=== PATIENT | male | born 1960 | race Caucasian/White ===

== ENCOUNTER 2019-02-12 18:40 | Inpatient (IN) | payer SELFPAY ==
[~2019-02-12 18:40] MED LIST: Glycopyrrolate 0.2 MG/ML 5 ML SYRINGE ONE; Ketorolac Tromethamine 30 MG/ML VIAL ONE; Lidocaine 1% PF 5 ML VIAL ONE; Metoclopramide HCl 10 MG/2 ML VIAL ONE; Ondansetron PF 4 MG/2 ML Vial ONE; PROPOFOL 200 MG/20 ML VIAL ONE; PROVENTIL INHALER 6.7 G (200 INHALATIONS) ONE; Rocuronium Bromide 10 MG/ML (10ML VIAL) ONE; Succinylcholine Chloride 20 MG/ML 10 ml SYRINGE FS ONE
[2019-02-12] MEDS ORDERED: Fentanyl 100 MCG/2 ML VIAL ONE ×3 (18:49→20:44)
[2019-02-12 19:01] LABS: #Basophils 0.1 thou/uL (0.0-0.2); #Eosinphils 0.1 thou/uL (0.0-0.7); #Lymphocytes 1.5 thou/uL (1.20-3.40); #Monocytes 0.4 thou/uL (0.11-0.59); #Neutrophils 6.4 thou/uL (1.40-6.50); %Basophils 0.7 % (0.0-1.0); %Lymphocytes 17.4 % (21.0-51.0); %Monocytes 4.3 % (0.0-10.0); %Neutrophils 76.6 % (42.0-75.0); Hemoglobin 14.7 g/dL (14.0-18.0); Mean Corpuscular HGB CONC 34.9 g/dL (32.0-36.0); Mean Corpuscular Hemoglobin 32.6 pg (27.0-31.0); Mean Corpuscular Volume 93.5 fL (78.0-98.0); Mean Platelet Volume 6.9 fL (7.4-10.4); Platelet Count 232 thou/uL (130-400); RBC Distribution Width 11.2 % (11.5-14.5); White Blood Cell (WBC) Count 8.3 thou/uL (4.8-10.8)
[2019-02-12] MEDS ORDERED: Adacel (T-DAP) 0.5 ML SYRINGE ONE (19:01)
--- NOTE | 2019-02-12 19:04 | RAD ---
PORTABLE CHEST: History: Pre-op. FINDINGS: Heart size and mediastinum within normal limits. The lungs are clear of infiltrates. No significant b alison findings. IMPRESSION: No active intrathoracic disease. POS: [facility]
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
[2019-02-12 19:18] LABS: ALT (SGPT) 14 U/L (8-55); AST (SGOT) 11 U/L (5-34); Alkaline Phosphatase 140 U/L (40-150); Anion Gap 13 mmol/L (10-20); BUN (Urea Nitrogen) 15 mg/dL (8.4-25.7); Bilirubin, Total 0.3 mg/dL (0.2-1.2); Calc. Creatinine Clearance 0 mL/min (70-130); Calcium 8.8 mg/dL (7.8-10.44); Carbon Dioxide 20 mmol/L (22-29); Chloride 106 mmol/L (98-107); Estimated GFR-MDRD 59; Globulin 2.4 g/dL (2.4-3.5); Glucose 377 mg/dL (70-105); Potassium 4.1 mmol/L (3.5-5.1); Protein, Total 6.4 g/dL (6.0-8.3); Sodium 135 mmol/L (136-145)
[2019-02-12] MEDS ORDERED: Famotidine/PF 20 mg/2ml Vial ONE (19:43)
[2019-02-12 20:00] LABS: Magnesium 1.7 mg/dL (1.6-2.6)
[2019-02-12] MEDS ORDERED: Ondansetron PF 4 MG/2 ML Vial IVP PRN (20:00)
[2019-02-12] MEDS ORDERED: Dextrose 5% in Water 1,000 ML IV PRN (20:00)
[2019-02-12] MEDS ORDERED: Morphine 2 MG/ML SYRINGE SLOW IVP PRN (20:00)
[2019-02-12] MEDS ORDERED: hydrALAZINE 20 MG/ML VIAL SLOW IVP PRN (20:00)
[2019-02-12] MEDS ORDERED: Morphine 4 MG/ML VIAL SLOW IVP PRN (20:00)
[2019-02-12] MEDS ORDERED: Dextrose 50% Abboject 50 ML SYRINGE SLOW IVP PRN (20:00)
[2019-02-12] MEDS ORDERED: traMADol HCl 50 MG TAB PO PRN (20:11)
[2019-02-12] MEDS ORDERED: Levofloxacin 500 mg/D5W 100 ml Premix Bag ONE (20:39)
[2019-02-12] MEDS ORDERED: Neomycin-Polymyxin 1 ML AMP ONE (20:39)
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
[2019-02-12] MEDS ORDERED: Famotidine/PF 20 mg/2ml Vial SLOW IVP SCH (21:00)
[2019-02-12] MEDS ORDERED: Bupivacaine HCl 0.5%/Epinephrine 1:200,000/PF 30 ml Vial ONE (21:20)
[2019-02-12] MEDS ORDERED: Ondansetron HCl/PF 4 MG/2 ML Vial IVP PRN (21:27)
[2019-02-12] MEDS ORDERED: Meperidine HCl/PF 25 MG/ML VIAL SLOW IVP PRN (21:27)
[2019-02-12] MEDS ORDERED: Promethazine HCl 25 MG/ML VIAL SLOW IVP PRN (21:27)
[2019-02-12] MEDS ORDERED: Promethazine HCl 25 MG/ML VIAL IM PRN (21:27)
--- NOTE | 2019-02-12 21:32 | RAD ---
XR Ankle Rt 3 View STANDARD HISTORY: Intraoperative films. Post reduction. COMPARISON: Plain films done earlier today. FINDINGS: There is been open reduction and internal fixation of the medial malleolar and distal fibul ar fractures with plate and screws. Alignment appears satisfactory. IMPRESSION: Open reduction and internal fixation of bimalleolar fracture.
[2019-02-12] MEDS ORDERED: CEFAZOLIN 2 GM in Premix Bag 1 BAG IVPB SCH (22:00)
[2019-02-12 22:34] LABS: Hemoglobin A1c 9.1 % (4.0-6.0)
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
[2019-02-12] MEDS: Sodium Chloride 0.9% 1,000 ML IV SCH (22:43)
[2019-02-12] MEDS: Senokot S 8.6-50 MG TAB PO SCH (22:46)
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
[2019-02-12] MEDS: CEFAZOLIN 2 GM in Premix Bag 1 BAG IVPB SCH (22:53)
[2019-02-12] MEDS: cefTRIAXone\\ROCEPHIN 2 GM in Sodium Chloride 0.9% 100 ML IVPB SCH (22:56)
[2019-02-13] MEDS: Ketorolac Tromethamine 30 MG/ML VIAL IVP SCH ×5 (00:05→23:07)
[2019-02-13] MEDS: traMADol HCl 50 MG TAB PO SCH ×5 (00:06→23:07)
[2019-02-13] MEDS: HumaLOG 300 UNITS/3 ML VIAL SC PRN ×3 (00:18→13:23)
[2019-02-13] MEDS ORDERED: Acetaminophen 1,000 MG in Premix Bag 1 BAG IVPB SCH (02:00)
[2019-02-13 05:11] LABS: #Eosinphils 0.1 thou/uL (0.0-0.7); #Lymphocytes 2.3 thou/uL (1.20-3.40); #Monocytes 0.7 thou/uL (0.11-0.59); #Neutrophils 6.7 thou/uL (1.40-6.50); %Basophils 0.2 % (0.0-1.0); %Eosinophils 0.7 % (0.0-10.0); %Lymphocytes 23.5 % (21.0-51.0); %Monocytes 7.4 % (0.0-10.0); %Neutrophils 68.2 % (42.0-75.0); Hemoglobin 12.2 g/dL (14.0-18.0); Mean Corpuscular HGB CONC 34.9 g/dL (32.0-36.0); Mean Corpuscular Hemoglobin 32.4 pg (27.0-31.0); Mean Corpuscular Volume 92.9 fL (78.0-98.0); Platelet Count 203 thou/uL (130-400); RBC Distribution Width 11.2 % (11.5-14.5); Red Blood Cell (RBC) Count 3.75 mill/uL (4.70-6.10); White Blood Cell (WBC) Count 9.9 thou/uL (4.8-10.8)
[2019-02-13 05:20] LABS: Anion Gap 9 mmol/L (10-20); BUN (Urea Nitrogen) 11 mg/dL (8.4-25.7); Calc. Creatinine Clearance 112 mL/min (70-130); Carbon Dioxide 25 mmol/L (22-29); Chloride 108 mmol/L (98-107); Estimated GFR-MDRD 86; Glucose 162 mg/dL (70-105); Potassium 3.4 mmol/L (3.5-5.1); Sodium 139 mmol/L (136-145)
[2019-02-13] MEDS: CEFAZOLIN 2 GM in Premix Bag 1 BAG IVPB SCH (05:58)
[2019-02-13] MEDS: Sodium Chloride 0.9% 1,000 ML IV SCH (06:04)
[2019-02-13 07:40] LABS: Magnesium 1.8 mg/dL (1.6-2.6); Phosphorus 3.4 mg/dL (2.3-4.7)
[2019-02-13] MEDS ORDERED: Magnesium 2 GM/50 ML 2 GM in Premix Bag 1 BAG IVPB SCH (08:00)
[2019-02-13] MEDS: Polyethylene Glycol 3350 17 GM Packet PO SCH (08:26)
[2019-02-13] MEDS: Aspirin 81 mg Enteric Coated Tablet PO SCH ×2 (08:26→20:22)
[2019-02-13] MEDS: Senokot S 8.6-50 MG TAB PO SCH ×2 (08:26→20:22)
[2019-02-13] MEDS: Acetaminophen 500 MG TAB PO SCH ×3 (08:27→20:22)
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
[2019-02-13] MEDS: cefTRIAXone\\ROCEPHIN 2 GM in Sodium Chloride 0.9% 100 ML IVPB SCH (23:06)
[2019-02-14] MEDS: Acetaminophen 500 MG TAB PO SCH ×3 (02:04→14:57)
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
[2019-02-14 04:24] LABS: #Lymphocytes 1.8 thou/uL (1.20-3.40); #Monocytes 0.8 thou/uL (0.11-0.59); #Neutrophils 6.1 thou/uL (1.40-6.50); %Basophils 0.3 % (0.0-1.0); %Eosinophils 0.5 % (0.0-10.0); %Lymphocytes 20.4 % (21.0-51.0); %Monocytes 9.1 % (0.0-10.0); %Neutrophils 69.7 % (42.0-75.0); Hemoglobin 11.9 g/dL (14.0-18.0); Mean Corpuscular HGB CONC 35.1 g/dL (32.0-36.0); Mean Corpuscular Hemoglobin 32.6 pg (27.0-31.0); Mean Corpuscular Volume 92.6 fL (78.0-98.0); Mean Platelet Volume 7.2 fL (7.4-10.4); Platelet Count 160 thou/uL (130-400); RBC Distribution Width 11.1 % (11.5-14.5); Red Blood Cell (RBC) Count 3.65 mill/uL (4.70-6.10); White Blood Cell (WBC) Count 8.7 thou/uL (4.8-10.8)
[2019-02-14] MEDS: Ketorolac Tromethamine 30 MG/ML VIAL IVP SCH (05:04)
[2019-02-14] MEDS: traMADol HCl 50 MG TAB PO SCH ×2 (05:05→11:39)
[2019-02-14 05:39] LABS: Anion Gap 8 mmol/L (10-20); BUN (Urea Nitrogen) 11 mg/dL (8.4-25.7); Calc. Creatinine Clearance 117 mL/min (70-130); Calcium 8.4 mg/dL (7.8-10.44); Carbon Dioxide 26 mmol/L (22-29); Chloride 105 mmol/L (98-107); Estimated GFR-MDRD Greater than 90; Glucose 154 mg/dL (70-105); Magnesium 1.9 mg/dL (1.6-2.6); Phosphorus 2.7 mg/dL (2.3-4.7); Potassium 3.8 mmol/L (3.5-5.1); Sodium 135 mmol/L (136-145)
[2019-02-14] MEDS: Polyethylene Glycol 3350 17 GM Packet PO SCH (08:37)
[2019-02-14] MEDS: Senokot S 8.6-50 MG TAB PO SCH (08:37)
[2019-02-14 11:35] VITALS: BP 107/65; TEMP 98.2
[2019-02-14] MEDS: Aspirin 81 mg Enteric Coated Tablet PO SCH (11:39)
[2019-02-14] MEDS: HumaLOG 300 UNITS/3 ML VIAL SC PRN (11:40)
[2019-02-14] MEDS ORDERED: Ibuprofen 600 MG TAB PO SCH (12:00)
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
--- NOTE | 2019-02-15 20:32 | PQF ---
[employer] Associate [employer] Winform Viewer KRISHNA BOYER JUANJO SHUKRI Kenji [id number] CLINICAL DOCUMENTATION CLARIFICATION FORM: POST DISCHARGE Addendum to original discharge summary date: ____ Late entry note date: __ DATE: 02/15/19 ATTN: Shukri Gardiner Please exercise your independent, professional judgment in responding to the clarification form. Clinical indicators are provided on the bottom of this form for your review Can you please specify the clinical significance of the indicators below. Please check appropriate box(s): [ x ] Hyponatremia [ ] Abnormal laboratory findings [ ] Insignificant laboratory findings [ ] Other diagnosis please specify [ ] Unable to determine In addition, please specify: Present on Admission (POA): [x ] Yes [ ] No [ ] Unable to determine For continuity of documentation, please document condition throughout progress notes and discharge summary. Thank You. CLINICAL INDICATORS Laboratory - "02/12 Sodium 135L, 02/13 Sodium 139L, 02/14 Sodium 135L" PN 02/13 Dr. Ashby pg.1- "post op day #1, status post ORIF of the right bimalleolar ankle fracture" PN 02/13 Dr. Ashby pg.1- "Received potassium phosphate today to replete his electrolytes" RISK FACTORS type 2 diabetes- PN 02/13 Dr. Ashby pg.1 status post ORIF-PN 02/13 Dr. Ashby pg.1 TREATMENT Sodium Chloride 0.9% 1,000ml IV 120ml/hr-AUG 06 Potassium Phosphate (K Phos 15MM/ML) mmol Sodium Chloride 0.9% (normal saline 0.9%) 250ml- AUG 06 (This form is maintained as a part of the permanent medical record) 2014 [email or web address]. All Rights Reserved Krishna [not provided] MTDD
--- NOTE | 2019-02-18 14:11 | EKG ---
Test Reason : Blood Pressure : / mmHG Vent. Rate : 072 BPM Atrial Rate : 072 BPM P-R Int : 166 ms QRS Dur : 086 ms QT Int : 368 ms P-R-T Axes : 058 031 026 degrees QTc Int : 402 ms Normal sinus rhythm Possible Left atrial enlargement Borderline ECG Confirmed by ERIC MARIA ([id number]), clinical editor MIREYA JALLOH ([id number]) on 02/18/2019 2:11:04 PM Referred By: CROW Confirmed By:ERIC MARIA
== END 2019-02-14 15:50 | disposition home or self-care (01) | DRG 493 ==
LOC: ERS 18:40 → SURG A 20:10 → SDC/OP 20:28 → SURG A 22:22
PROVIDERS: ADMIT Orthopaedic Surgery; ATTEND Orthopaedic Surgery
PROC: 0QSG04Z Reposition Right Tibia with Internal Fixation Device, Open Approach (ICD-10-PCS; principal; 2019-02-12)
PROC: 0QSJ04Z Reposition Right Fibula with Internal Fixation Device, Open Approach (ICD-10-PCS; 2019-02-12)
DX: S82.841B Displaced bimalleolar fracture of right lower leg, initial encounter for open fracture type I or II (principal); E87.1 Hypo-osmolality and hyponatremia; S93.04XA Dislocation of right ankle joint, initial encounter; S50.811A Abrasion of right forearm, initial encounter; F17.210 Nicotine dependence, cigarettes, uncomplicated; E11.9 Type 2 diabetes mellitus without complications; V86.56XA Driver of dirt bike or motor/cross bike injured in nontraffic accident, initial encounter; Y92.9 Unspecified place or not applicable; Y93.I9 Activity, other involving external motion; Z87.442 Personal history of urinary calculi
CPT/HCPCS: 36415; 36416; 71045; 76000; 80048; 80053; 83036; 83735; 84100; 85025; 90471; 90715; 93005; 96374; C1713; G0390; J0131; J0670; J0690; J0696; J1885; J1956; J2001; J2270; J2405; J2704; J2765; J3010; J3475; J3490; J7050; S0028